=== PATIENT | male | born 2005 | race Caucasian/White ===

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

== ENCOUNTER 2023-03-07 13:01 | Emergency (ER) | payer OTHER ==
[2023-03-07] MEDS ORDERED: LIDOCAINE 1% INJ 10MG/ML (20 ML MDV) SQ ONE (14:04)
[2023-03-07] MEDS ORDERED: DIPH,PERTUS(ACELL)TETVAC-LF 0.5 ML VIAL IM ONE (14:04)
--- NOTE | 2023-03-07 14:05 | ED ---
General Adult HPI - General Chief complaint: Wound/Laceration Stated complaint: R Hand Lac Time Seen by Provider: 03/07/23 13:18 Source: patient, RN notes reviewed Mode of arrival: ambulatory Limitations: no limitations - History of Present Illness Initial comments: 16-year-old male with no significant past medical history presents the emergency department with a chief complaint of right hand laceration. Patient reports that he was walking when he looked down and noticed a laceration to his right hand. He is unsure WHAT he cut it on. He reports receiving a tetanus vaccine within the last 5 years. His numbness, tingling, weakness. Denies anticoagulant use. - Related Data Allergies Allergy/AdvReac Type Severity Reaction Status Date / Time divalproex sodium Allergy Confusion Verified 03/07/23 13:13 [From [facility]] Review of Systems ROS Statement: Those systems with pertinent positive or pertinent negative responses have been documented in the HPI. ROS Other: All systems not noted in ROS Statement are negative. Past Medical History Past Medical History: No Reported History History of Any Multi-Drug Resistant Organisms: None Reported Past Surgical History: No Surgical Hx Reported Past Psychological History: No Psychological Hx Reported Smoking Status: Current every day smoker, Vaper Past Alcohol Use History: None Reported Past Drug Use History: Marijuana General Exam - General Exam Comments Initial Comments: General: Alert, in no acute distress Head: atraumatic normocephalic. Eyes PERRL, EOMI intact, mucous membranes moist Respiratory: Lungs clear to auscultation bilaterally Cardiovascular: Heart rate regular rhythm Abdominal: Soft without guarding or rebound Extremities: Normal inspection with full range of motion and normal capillary refill, right hand with 1 cm laceration that approximates well. No crepitus noted. Neuroogic: alert and oriented 3, CN II-XII intact, able to ambulate with steady gait Skin: warm dry and intact with normal color Limitations: no limitations Course Vital Signs 03/07/23 13:11 Temperature 98.4 F Pulse Rate 92 Respiratory 18 Rate Blood Pressure 131/78 O2 Sat by Pulse 99 Oximetry Procedures - Laceration Laceration #1 Consent Obtained: verbal consent Indication: laceration Site: other (right 1st digit) Size (cm): 1 Description: linear Depth: simple, single layer Anesthetic Used: lidocaine 1% Anesthesia Technique: local infiltration Amount (mls): 3 Pre-repair: wound explored, irrigated extensively Type of Sutures: other Size of Sutures: 5-0 Number of Sutures: 3 Technique: simple, interrupted Complications: pain, bleeding, nerve injury Patient Tolerated Procedure: well, no complications Medical Decision Making - Medical Decision Making Was pt. sent in by a medical professional or institution (CELSA Iyer, SEWING MACHINE ATTACHMENT TESTER, urgent care, hospital, or detention...) When possible be specific @ -[No] Did you speak to anyone other than the patient for history (EMS, parent, family, police, friend...)? What history was obtained from this source @ -[No] Did you review nursing and triage notes (agree or disagree)? Why? @ -[I reviewed and agree with nursing and triage notes] Were old charts reviewed (outside hosp., previous admission, EMS record, old EKG, old radiological studies, urgent care reports/EKG's, detention records)? Report findings @ -[No old charts were reviewed] Differential Diagnosis (chest pain, altered mental status, abdominal pain women, abdominal pain men, vaginal bleeding, weakness, fever, dyspnea, syncope, headache, dizziness, GI bleed, back pain, seizure, CVA, palpatations, mental health, musculoskeletal)? @ -[not applicable] EKG interpreted by me (3pts min.). @ -[As above] X-rays interpreted by me (1pt min.). @ -[None done] CT interpreted by me (1pt min.). @ -[None done] U/S interpreted by me (1pt. min.). @ -[None done] What testing was considered but not performed or refused? (CT, X-rays, U/S, labs)? Why? @ -[None] What meds were considered but not given or refused? Why? @ -[None] Did you discuss the management of the patient with other professionals (professionals i.e. CELSA Iyer, SEWING MACHINE ATTACHMENT TESTER, lab, RT, psych nurse, social service agency director, lighting director, teacher, weapons officer, embedded case manager)? Give summary @ -[No] Was smoking cessation discussed for >3mins.? @ -[No] Was critical care preformed (if so, how long)? @ -[No] Were there social determinants of health that impacted care today? How? (Homelessness, low income, unemployed, alcoholism, drug addiction, transportation, low edu. Level, literacy, decrease access to med. care, detention, rehab)? @ -[No] Was there de-escalation of care discussed even if they declined (Discuss DNR or withdrawal of care, Hospice)? DNR status @ -[No] What co-morbidities impacted this encounter? (DM, HTN, Smoking, COPD, CAD, Cancer, CVA, ARF, Chemo, Hep., AIDS, mental health diagnosis, sleep apnea, morbid obesity)? @ -[None] Was patient admitted / discharged? Hospital course, mention meds given and route, prescriptions, significant lab abnormalities, going to OR and other pertinent info. @ -Discharged. This is a pleasant 17-year-old male who presents the emergency department laceration. Patient had a laceration since the irrigated. Patient had 3 sutures placed which he tolerated well. Discharged in stable condition. Educated on the importance of removal in 7-10 days. Return precautions were discussed at length. Case discussed with Dr. Fonseca, [facility] who agrees with plan of care Undiagnosed new problem with uncertain prognosis? @ -[No] Drug Therapy requiring intensive monitoring for toxicity (Heparin, Nitro, Insulin, Cardizem)? @ -[No] Were any procedures done? @ -[No] Diagnosis/symptom? @ -Hand laceration Acute, or Chronic, or Acute on Chronic? @ -Acute Uncomplicated (without systemic symptoms) or Complicated (systemic symptoms)? @ -Uncomplicated Side effects of treatment? @ -[No] Exacerbation, Progression, or Severe Exacerbation? @ -[No] Poses a threat to life or bodily function? How? (Chest pain, [place], [place], pneumonia, PE, COPD, DKA, ARF, appy, cholecystitis, CVA, Diverticulitis, Homicidal, Suicidal, threat to staff... and all critical care pts) @ -Low likelihood Disposition Clinical Impression: Laceration Disposition: HOME SELF-CARE Condition: Stable Instructions (If sedation given, give patient instructions): Care For Your Stitches (DC), Laceration (ED) Additional Instructions: Please keep the area clean and dry Please return to the nearest emergency department if worsening symptoms or redness develop Is patient prescribed a controlled substance at d/c from ED?: No Referrals: None,Stated [Primary Care Provider] - 1-2 days Time of Disposition: 14:05
[2023-03-07 15:20] VITALS: BP 126/76; PULSE 78; RESP 16; TEMP 97.4
== END 2023-03-07 15:28 | disposition home or self-care (01) ==
LOC: EC 13:01
DX: S61.411A Laceration without foreign body of right hand, initial encounter (principal); F17.290 Nicotine dependence, other tobacco product, uncomplicated; F12.90 Cannabis use, unspecified, uncomplicated; Z88.8 Allergy status to other drugs, medicaments and biological substances; Z23 Encounter for immunization; W26.8XXA Contact with other sharp object(s), not elsewhere classified, initial encounter
CPT/HCPCS: 12001; 90471; 99282; J2001

== ENCOUNTER 2023-09-01 00:45 | Emergency (ER) | payer OTHER ==
[2023-09-01 00:51] VITALS: TEMP 98.1
[2023-09-01] MEDS: IBUPROFEN 600 MG TAB PO STA (01:38)
[2023-09-01] MEDS: CARBAMIDE PEROXIDE 6.5% DROPS 15 ML BTL LEFT EAR STA (02:03)
--- NOTE | 2023-09-01 02:14 | ED ---
General Adult HPI - General Chief complaint: ENT Stated complaint: earache Time Seen by Provider: 09/01/23 01:09 Source: patient, RN notes reviewed Mode of arrival: ambulatory Limitations: no limitations - History of Present Illness Initial comments: 17-year-old male presents to the emergency department for evaluation of left ear pain. Patient states that this started about 3 hours prior to arrival. He notes that it started fairly suddenly. He denies any trauma. He denies fever, chills. Denies any hearing changes. Denies upper respiratory symptoms. - Related Data Allergies Allergy/AdvReac Type Severity Reaction Status Date / Time divalproex sodium Allergy Confusion Verified 09/01/23 00:51 [From [facility]] Review of Systems ROS Statement: Those systems with pertinent positive or pertinent negative responses have been documented in the HPI. ROS Other: All systems not noted in ROS Statement are negative. Past Medical History Past Medical History: No Reported History History of Any Multi-Drug Resistant Organisms: None Reported Past Surgical History: Hernia Repair Past Psychological History: No Psychological Hx Reported Smoking Status: Current every day smoker, Vaper Past Alcohol Use History: None Reported Past Drug Use History: Marijuana General Exam Limitations: no limitations General appearance: alert, in no apparent distress Head exam: Present: atraumatic, normocephalic, normal inspection Eye exam: Present: normal appearance, PERRL, EOMI. Absent: scleral icterus, conjunctival injection, periorbital swelling ENT exam: Present: mucous membranes moist. Absent: TM's normal bilaterally, normal external ear exam (Cerumen impaction of the left ear) Respiratory exam: Present: normal lung sounds bilaterally. Absent: respiratory distress, wheezes, rales, rhonchi, stridor Cardiovascular Exam: Present: regular rate, normal rhythm, normal heart sounds. Absent: systolic murmur, diastolic murmur, rubs, gallop, clicks Neurological exam: Present: alert, oriented X3 Psychiatric exam: Present: normal affect, normal mood Skin exam: Present: warm, dry, intact, normal color. Absent: rash Course Vital Signs 09/01/23 09/01/23 00:49 02:28 Temperature 98.1 F Pulse Rate 72 82 Respiratory 20 18 Rate Blood Pressure 151/84 146/94 O2 Sat by Pulse 99 100 Oximetry Medical Decision Making - Medical Decision Making Was pt. sent in by a medical professional or institution (CELSA Iyer, BRAKE LINER, urgent care, hospital, or detention...) When possible be specific @ -No Did you speak to anyone other than the patient for history (EMS, parent, family, police, friend...)? What history was obtained from this source @ -No Did you review nursing and triage notes (agree or disagree)? Why? @ -I reviewed and agree with nursing and triage notes Were old charts reviewed (outside hosp., previous admission, EMS record, old EKG, old radiological studies, urgent care reports/EKG's, detention records)? Report findings @ -No old charts were reviewed Differential Diagnosis (chest pain, altered mental status, abdominal pain women, abdominal pain men, vaginal bleeding, weakness, fever, dyspnea, syncope, headache, dizziness, GI bleed, back pain, seizure, CVA, palpatations, mental health, musculoskeletal)? @ -Otitis media, otitis externa, cerumen impaction, this list is not all inclusive EKG interpreted by me (3pts min.). @ -None X-rays interpreted by me (1pt min.). @ -None done CT interpreted by me (1pt min.). @ -None done U/S interpreted by me (1pt. min.). @ -None done What testing was considered but not performed or refused? (CT, X-rays, U/S, labs)? Why? @ -None What meds were considered but not given or refused? Why? @ -None Did you discuss the management of the patient with other professionals (professionals i.e. CELSA Iyer, BRAKE LINER, lab, RT, psych nurse, child welfare social worker, housekeeper, teacher, parcel post officer, sample case porter)? Give summary @ -No Was smoking cessation discussed for >3mins.? @ -No Was critical care preformed (if so, how long)? @ -No Were there social determinants of health that impacted care today? How? (Homelessness, low income, unemployed, alcoholism, drug addiction, transportation, low edu. Level, literacy, decrease access to med. care, senior living, rehab)? @ -No Was there de-escalation of care discussed even if they declined (Discuss DNR or withdrawal of care, Hospice)? DNR status @ -No What co-morbidities impacted this encounter? (DM, HTN, Smoking, COPD, CAD, Cancer, CVA, ARF, Chemo, Hep., AIDS, mental health diagnosis, sleep apnea, morbid obesity)? @ -None Was patient admitted / discharged? Hospital course, mention meds given and route, prescriptions, significant lab abnormalities, going to OR and other pertinent info. @ -Discharge. Patient presented to the emergency department for evaluation of left ear pain. On physical examination, patient has cerumen impaction to the left ear. He was provided Debrox drops and instructed to use this for the next 4 days. Patient understanding agreeable with plan. Patient stable at time of discharge. Case discussed with Dr. Meneses. Undiagnosed new problem with uncertain prognosis? @ -No Drug Therapy requiring intensive monitoring for toxicity (Heparin, Nitro, Insulin, Cardizem)? @ -No Were any procedures done? @ -No Diagnosis/symptom? @ -Cerumen impaction Acute, or Chronic, or Acute on Chronic? @ -Acute Uncomplicated (without systemic symptoms) or Complicated (systemic symptoms)? @ -Uncomplicated Side effects of treatment? @ -No Exacerbation, Progression, or Severe Exacerbation? @ -No Poses a threat to life or bodily function? How? (Chest pain, [place], [place], pneumonia, PE, COPD, DKA, ARF, appy, cholecystitis, CVA, Diverticulitis, Homicidal, Suicidal, threat to staff... and all critical care pts) @ -No Disposition Clinical Impression: Cerumen impaction Disposition: HOME SELF-CARE Condition: Stable Instructions (If sedation given, give patient instructions): Earache (ED) Additional Instructions: Utilize 5-10 ear drops twice daily and attempt to leave in for around 10 minutes. Please follow up with your primary care provider. Return to the emergency department for new or worsening symptoms. Is patient prescribed a controlled substance at d/c from ED?: No Referrals: None,Stated [Primary Care Provider] - 1-2 days
[2023-09-01] MEDS: IBUPROFEN 600 MG STARTER PACK 4 TAB BTL PO STA (02:26)
[2023-09-01 02:29] VITALS: BP 146/94; PULSE 82; RESP 18
== END 2023-09-01 02:29 | disposition home or self-care (01) ==
LOC: EC 00:45
DX: H61.22 Impacted cerumen, left ear (principal); F17.290 Nicotine dependence, other tobacco product, uncomplicated; F12.90 Cannabis use, unspecified, uncomplicated; Z88.8 Allergy status to other drugs, medicaments and biological substances
CPT/HCPCS: 99283

== ENCOUNTER 2023-09-22 12:44 | Emergency (ER) | payer OTHER ==
[2023-09-22 12:55] VITALS: RESP 18
[2023-09-22] MEDS: LIDOCAINE 1% INJ 10MG/ML (20 ML MDV) SQ ONE (14:00)
--- NOTE | 2023-09-22 14:08 | ED ---
Wound/Laceration HPI - General Chief Complaint: Wound/Laceration Stated Complaint: R Hand Laceration Time Seen by Provider: 09/22/23 13:35 Source: patient, EMS, RN notes reviewed Mode of arrival: EMS Limitations: no limitations - History of Present Illness Initial Comments: 17-year-old male presenting via EMS for chief complaint of finger laceration 30 minutes prior to arrival. States he was locked out of his house and was trying to pry the window open. States the glass on the window shattered and sliced his finger. There was active bleeding at the time of injury. Patient states he does not know who called EMS. Denies blood thinners. Last tetanus was earlier this year. Denies pain with movement of digits. Denies numbness or tingling. No other injuries. - Related Data Previous Rx's Medication Instructions Recorded Cephalexin [Keflex] 500 mg PO Q12HR 5 Days #10 cap 09/22/23 Allergies Allergy/AdvReac Type Severity Reaction Status Date / Time divalproex sodium Allergy Confusion Verified 09/22/23 12:55 [facility] Review of Systems ROS Statement: Those systems with pertinent positive or pertinent negative responses have been documented in the HPI. ROS Other: All systems not noted in ROS Statement are negative. Past Medical History Past Medical History: No Reported History History of Any Multi-Drug Resistant Organisms: None Reported Past Surgical History: Hernia Repair Past Psychological History: No Psychological Hx Reported Smoking Status: Current every day smoker, Vaper Past Alcohol Use History: None Reported Past Drug Use History: Marijuana General Exam Limitations: no limitations General appearance: alert, in no apparent distress Head exam: Present: atraumatic, normocephalic, normal inspection Eye exam: Present: normal appearance, PERRL, EOMI. Absent: scleral icterus, conjunctival injection, periorbital swelling Respiratory exam: Present: normal lung sounds bilaterally. Absent: respiratory distress, wheezes, rales, rhonchi, stridor Cardiovascular Exam: Present: regular rate, normal rhythm, normal heart sounds. Absent: systolic murmur, diastolic murmur, rubs, gallop, clicks Right Elbow exam: Present: normal inspection, full ROM. Absent: tenderness, swelling Forearm Wrist exam: Present: normal inspection, full ROM. Absent: tenderness, swelling Hand Wrist exam: Present: full ROM, laceration (2 cm laceration over dorsal aspect of second digit of right hand directly over PIP joint). Absent: tenderness, swelling, deformity Vascular: Present: normal capillary refill. Absent: vascular compromise Neurological exam: Present: alert, oriented X3 Psychiatric exam: Present: normal affect, normal mood Skin exam: Present: warm, dry, intact, normal color. Absent: rash Course Vital Signs 09/22/23 09/22/23 12:53 15:57 Temperature 98.6 F 98.1 F Pulse Rate 78 83 Respiratory 18 18 Rate Blood Pressure 137/91 132/76 O2 Sat by Pulse 99 97 Oximetry Procedures - Laceration Laceration #1 Consent Obtained: verbal consent Indication: laceration Site: hand Size (cm): 2 Description: linear Depth: simple, single layer Anesthetic Used: lidocaine 1%, without epi Amount (mls): 3 Pre-repair: wound explored, irrigated extensively, deep structures intact Type of Sutures: nylon Size of Sutures: 4-0 Number of Sutures: 2 Technique: simple, interrupted Patient Tolerated Procedure: well, no complications Additional Comments: Neurovascularly intact status post procedure Medical Decision Making - Medical Decision Making Was pt. sent in by a medical professional or institution (Dr. PA, SENIOR HADOOP DEVELOPER, urgent care, hospital, or fdc...) When possible be specific @ -No Did you speak to anyone other than the patient for history (EMS, parent, family, police, friend...)? What history was obtained from this source @ -No Did you review nursing and triage notes (agree or disagree)? Why? @ -I reviewed and agree with nursing and triage notes Were old charts reviewed (outside hosp., previous admission, EMS record, old EKG, old radiological studies, urgent care reports/EKG's, fdc records)? Report findings @ -No old charts were reviewed Differential Diagnosis (chest pain, altered mental status, abdominal pain women, abdominal pain men, vaginal bleeding, weakness, fever, dyspnea, syncope, headache, dizziness, GI bleed, back pain, seizure, CVA, palpatations, mental health, musculoskeletal)? @ -Differential Musculoskeletal Muscular strain, contusion, ligament sprain, fracture, arthritis, septic arthritis, bursitis, cellulitis, muscle spasm, nerve compression, DVT, arterial occlusion, herpes zoster, electrolyte abnormality, tumor.... This is not meant to be in all inclusive list EKG interpreted by me (3pts min.). @ -None X-rays interpreted by me (1pt min.). @ -None done CT interpreted by me (1pt min.). @ -None done U/S interpreted by me (1pt. min.). @ -None done What testing was considered but not performed or refused? (CT, X-rays, U/S, labs)? Why? @ -Imaging performed however low suspicion for fracture at this time What meds were considered but not given or refused? Why? @ -None Did you discuss the management of the patient with other professionals (professionals i.e. , PA, SENIOR HADOOP DEVELOPER, lab, RT, psych nurse, social contact worker, mailing machine assistant, teacher, chief commercial officer, window caser)? Give summary @ -No Was smoking cessation discussed for >3mins.? @ -No Was critical care preformed (if so, how long)? @ -No Were there social determinants of health that impacted care today? How? (Homelessness, low income, unemployed, alcoholism, drug addiction, transportatio n, low edu. Level, literacy, decrease access to med. care, [facility], rehab)? @ -No Was there de-escalation of care discussed even if they declined (Discuss DNR or withdrawal of care, Hospice)? DNR status @ -No What co-morbidities impacted this encounter? (DM, HTN, Smoking, COPD, CAD, Cancer, CVA, ARF, Chemo, Hep., AIDS, mental health diagnosis, sleep apnea, morbid obesity)? @ -None Was patient admitted / discharged? Hospital course, mention meds given and route, prescriptions, significant lab abnormalities, going to OR and other pertinent info. @ -Patient was discharged. Patient was seen and evaluated for laceration of finger of right hand prior to arrival. States he sliced his hand on glass. Neurovascularly intact. There is a 2 cm laceration present over dorsal aspect of right second digit directly over PIP joint. Patient's tetanus is currently up-to-date. Wound irrigated thoroughly and 2 sutures placed with no complications. Patient is neurovascularly intact status post procedure. Prescribed Keflex for bacterial prophylaxis. Finger splint applied. Wound care discussed. Advised to follow-up in 7 days for suture removal. Return parameters discussed. Case discussed with my attending Dr. Fonseca. Patient discharged in stable condition. Undiagnosed new problem with uncertain prognosis? @ -No Drug Therapy requiring intensive monitoring for toxicity (Heparin, Nitro, Insuli n, Cardizem)? @ -No Were any procedures done? @ -2 sutures placed Diagnosis/symptom? @ -Laceration of finger of right hand Acute, or Chronic, or Acute on Chronic? @ -Acute Uncomplicated (without systemic symptoms) or Complicated (systemic symptoms)? @ -Uncomplicated Side effects of treatment? @ -No Exacerbation, Progression, or Severe Exacerbation? @ -No Poses a threat to life or bodily function? How? (Chest pain, [place], [place], pneumonia, PE, COPD, DKA, ARF, appy, cholecystitis, CVA, Diverticulitis, Homicidal, Suicidal, threat to staff... and all critical care pts) @ -No Disposition Clinical Impression: Laceration of right index finger Disposition: HOME SELF-CARE Condition: Stable Instructions (If sedation given, give patient instructions): Finger Laceration (ED) Additional Instructions: Please take Keflex as directed. Keep wound dry for 24 hours then you may gently wash affected area with antibacterial soap and water. You can apply bacitracin or Neosporin twice daily as needed. Follow-up in 7 days for suture removal. Please return to the Emergency Department if symptoms worsen or any other concerns. Prescriptions: Cephalexin [Keflex] 500 mg PO Q12HR 5 Days #10 cap Is patient prescribed a controlled substance at d/c from ED?: No Referrals: None,Stated [Primary Care Provider] - 1-2 days Time of Disposition: 16:06
[2023-09-22 16:00] VITALS: BP 132/76; PULSE 83; TEMP 98.1
== END 2023-09-22 16:11 | disposition home or self-care (01) ==
LOC: EC 12:44
DX: S61.210A Laceration without foreign body of right index finger without damage to nail, initial encounter (principal); F17.290 Nicotine dependence, other tobacco product, uncomplicated; Z88.8 Allergy status to other drugs, medicaments and biological substances; X58.XXXA Exposure to other specified factors, initial encounter
CPT/HCPCS: 99282; 12001; J2001

== ENCOUNTER 2023-09-24 13:11 | Emergency (ER) | payer OTHER ==
[2023-09-24 13:26] VITALS: BP 134/81; PULSE 70; RESP 16; TEMP 97.6
--- NOTE | 2023-09-24 13:53 | ED ---
Male Urogenital HPI - General Chief complaint: Urogenital Stated complaint: STD testing Time Seen by Provider: 09/24/23 13:51 Source: patient, RN notes reviewed Mode of arrival: ambulatory Limitations: no limitations - History of Present Illness Initial comments: 17-year-old male presenting for STD testing. States he is having some mild nonspecific redness of the scrotum, but denies pain or itching. Denies penile discharge, dysuria, urinary frequency or urgency. Denies testicular pain or swelling. He is sexually active with 1 female partner who is currently being tested for STDs. - Related Data Previous Rx's Medication Instructions Recorded Cephalexin [Keflex] 500 mg PO Q12HR 5 Days #10 cap 09/22/23 Doxycycline [Vibramycin] 100 mg PO BID 7 Days #14 capsule 09/24/23 Allergies Allergy/AdvReac Type Severity Reaction Status Date / Time divalproex sodium Allergy Confusion Verified 09/22/23 12:55 [From Depakote] Review of Systems ROS Statement: Those systems with pertinent positive or pertinent negative responses have been documented in the HPI. ROS Other: All systems not noted in ROS Statement are negative. Past Medical History Past Medical History: No Reported History History of Any Multi-Drug Resistant Organisms: None Reported Past Surgical History: Hernia Repair Past Psychological History: No Psychological Hx Reported Smoking Status: Current every day smoker, Vaper Past Alcohol Use History: None Reported Past Drug Use History: Marijuana General Exam - General Exam Comments Initial Comments: Visual Physical Exam Vital signs reviewed General: Well-appearing, nontoxic, no acute distress. Head: Normocephalic, atraumatic Eyes: PERRLA, EOMI ENT: Airway patent Chest: Nonlabored breathing Skin: No visual rash, normal skin tone Neuro: Alert and oriented 3 Musculoskeletal: No gross abnormalities Limitations: no limitations General appearance: alert, in no apparent distress Head exam: Present: atraumatic, normocephalic, normal inspection exam: Present: other (Declined exam) Neurological exam: Present: alert, oriented X3 Psychiatric exam: Present: normal affect, normal mood Skin exam: Present: warm, dry, intact, normal color. Absent: rash Course Vital Signs 09/24/23 13:24 Temperature 97.6 F Pulse Rate 70 Respiratory 16 Rate Blood Pressure 134/81 O2 Sat by Pulse 100 Oximetry Medical Decision Making - Medical Decision Making I completed the quick note portion of this chart signed Sarah Faulkner PA-C Was pt. sent in by a medical professional or institution (CELSA Iyer, CUSHION PADDER, urgent care, hospital, or half-way...) When possible be specific @ -No Did you speak to anyone other than the patient for history (EMS, parent, family, police, friend...)? What history was obtained from this source @ -No Did you review nursing and triage notes (agree or disagree)? Why? @ -I reviewed and agree with nursing and triage notes Were old charts reviewed (outside hosp., previous admission, EMS record, old EKG, old radiological studies, urgent care reports/EKG's, half-way records)? Report findings @ -No old charts were reviewed Differential Diagnosis (chest pain, altered mental status, abdominal pain women, abdominal pain men, vaginal bleeding, weakness, fever, dyspnea, syncope, headache, dizziness, GI bleed, back pain, seizure, CVA, palpatations, mental health, musculoskeletal)? @ -Sexually-transmitted infection, UTI, epididymitis, testicular torsion, cellulitis, genital herpes EKG interpreted by me (3pts min.). @ -None X-rays interpreted by me (1pt min.). @ -None done CT interpreted by me (1pt min.). @ -None done U/S interpreted by me (1pt. min.). @ -None done What testing was considered but not performed or refused? (CT, X-rays, U/S, labs)? Why? @ -None What meds were considered but not given or refused? Why? @ -Rocephin injection ordered for empiric gonorrhea treatment however patient left AMA before this was given Did you discuss the management of the patient with other professionals (professionals i.e. CELSA Iyer, CUSHION PADDER, lab, RT, psych nurse, high school social studies teacher, forgesmith, teacher, legal officer, case management director)? Give summary @ -No Was smoking cessation discussed for >3mins.? @ -No Was critical care preformed (if so, how long)? @ -No Were there social determinants of health that impacted care today? How? (Homelessness, low income, unemployed, alcoholism, drug addiction, transportation, low edu. Level, literacy, decrease access to med. care, [facility], rehab)? @ -No Was there de-escalation of care discussed even if they declined (Discuss DNR or withdrawal of care, Hospice)? DNR status @ -No What co-morbidities impacted this encounter? (DM, HTN, Smoking, COPD, CAD, Cancer, CVA, ARF, Chemo, Hep., AIDS, mental health diagnosis, sleep apnea, morbid obesity)? @ -None Was patient admitted / discharged? Hospital course, mention meds given and route, prescriptions, significant lab abnormalities, going to OR and other pertinent info. @ -Patient left AGAINST MEDICAL ADVICE. Patient was seen and evaluated for STD testing. Denies penile discharge, urinary symptoms, testicular pain or swe lling. He is sexually active with 1 female partner who is having vaginal discharge. No red flag symptoms. Patient declined exam. Discussed I would like to treat empirically for gonorrhea and chlamydia with Rocephin injection and doxycycline. Patient left AGAINST MEDICAL ADVICE before meds were given/workup was complete. Urine chlamydia and gonorrhea PCR was sent. Case discussed with my attending Dr. Oneal. Undiagnosed new problem with uncertain prognosis? @ -No Drug Therapy requiring intensive monitoring for toxicity (Heparin, Nitro, Insulin, Cardizem)? @ -No Were any procedures done? @ -No Diagnosis/symptom? @ -STD testing, exposure to STD Acute, or Chronic, or Acute on Chronic? @ -Acute Uncomplicated (without systemic symptoms) or Complicated (systemic symptoms)? @ -Uncomplicated Side effects of treatment? @ -No Exacerbation, Progression, or Severe Exacerbation? @ -No Poses a threat to life or bodily function? How? (Chest pain, USA, RI, pneumonia, PE, COPD, DKA, ARF, appy, cholecystitis, CVA, Diverticulitis, Homicidal, Suicidal, threat to staff... and all critical care pts) @ -Low likelihood Disposition Clinical Impression: Exposure to sexually transmitted disease (STD) Disposition: LEFT AGAINST MEDICAL ADVICE Prescriptions: Doxycycline [Vibramycin] 100 mg PO BID 7 Days #14 capsule Referrals: None,Stated [Primary Care Provider] - 1-2 days Time of Disposition: 23:59
[2023-09-24] MEDS: cefTRIAXone 250 MG VIAL IM STA (15:13)
[2023-09-25 13:44] LABS: C. trachomatis,PCR Negative (Negative); N. gonorrhoeae,PCR Negative (Negative)
== END 2023-09-24 19:00 | disposition left against medical advice (07) ==
LOC: EC 13:11
DX: A64 Unspecified sexually transmitted disease (principal); F17.290 Nicotine dependence, other tobacco product, uncomplicated; Z88.8 Allergy status to other drugs, medicaments and biological substances; Z53.29 Procedure and treatment not carried out because of patient's decision for other reasons
CPT/HCPCS: 87491; 87591; 99282

== ENCOUNTER 2023-12-18 15:06 | Emergency (ER) | payer OTHER ==
[2023-12-18] MEDS: IBUPROFEN 600 MG TAB PO STA (16:17)
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
[2023-12-18] MEDS: IBUPROFEN 600 MG STARTER PACK 4 TAB BTL PO STA (17:29)
[2023-12-18 17:32] VITALS: BP 148/78; PULSE 76; RESP 18; TEMP 97.9
== END 2023-12-18 17:40 | disposition home or self-care (01) ==
LOC: EC 15:06
CPT/HCPCS: 99283

== ENCOUNTER 2024-06-07 21:00 | Emergency (ER) | payer MEDICARE, OTHER ==
[2024-06-07 21:17] VITALS: BP 143/71; PULSE 68; RESP 20; TEMP 98.2
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
[2024-06-07] MEDS: LIDOCAINE 1% INJ 10MG/ML (20 ML MDV) SQ ONE (21:40)
[2024-06-07] MEDS: LIDOCAINE 4% CREAM 5 GM TUBE TOPICAL ONE (22:04)
[2024-06-07] MEDS: CEPHALEXIN 500 MG CAP PO STA (23:35)
== END 2024-06-08 00:14 | disposition home or self-care (01) ==
LOC: EC 21:00
DX: S81.812A Laceration without foreign body, left lower leg, initial encounter (principal); F17.290 Nicotine dependence, other tobacco product, uncomplicated; Z88.8 Allergy status to other drugs, medicaments and biological substances; W27.2XXA Contact with scissors, initial encounter
CPT/HCPCS: 99282; 12002; J2003